=== PATIENT | male | born 1975 | race Two or more races ===

== ENCOUNTER 2018-09-24 11:11 | Emergency (ER) | payer MEDICAID, OTHER ==
[~2018-09-24] VITALS: Ht 162.6 cm; Wt 88.5 kg
[~2018-09-24 11:11] MED LIST: EMTRTAB10; [UNRECOGNIZED DRUG - OTHER]
[2018-09-24 12:19] VITALS: BP 143/96
[2018-09-24] MEDS ORDERED: SODIUM CHLORIDE 0.9% 2,000 ML IV ONE (13:23)
[2018-09-24 13:58] LABS: Hematocrit 37.4 % (41.0-53.0); Hemoglobin 12.5 g/dL (13.5-17.5); Mean Corpuscular Hemoglobin 28.3 pg (28.0-32.0); Mean Corpuscular Hgb Conc. 33.5 g/dL (32.0-36.0); Mean Corpuscular Volume 84.4 fL (80.0-100.0); Platelet Count (auto) 310 10^3/uL (140-450); Red Blood Cells 4.42 10^6/uL (4.5-5.90); Red Cell Distribution Width 15.6 % (11.8-14.3); White Blood Cell 7.1 10^3/uL (4.4-10.8)
[2018-09-24 14:05] LABS: Albumin 3.5 g/dL (3.4-5.0); Potassium 4.4 mmol/L (3.5-5.1)
[2018-09-24 14:09] LABS: BUN/Creatinine Ratio 17.6; Bilirubin, Total 0.3 mg/dL (0.2-1.0); Total Protein 9.2 g/dL (6.4-8.2)
[2018-09-24 14:16] LABS: Band Neutrophils % (manual) 0; Basophils % (manual) 0 (0.0-2.0); Blast Cells 0; Eosinophils % (manual) 0 (0-7); Metamyelocytes % 0; Myelocytes % 0; Promyelocytes % 0; Reactive Lymphocytes 0
[2018-09-24] MEDS ORDERED: IOHEXOL 350 MG/ML 100ML IJ ONE (15:02)
[2018-09-24 16:24] LABS: Urine Bacteria NONE SEEN /hpf (None Seen); Urine Blood Negative /uL (Negative); Urine Mucus FEW (None Seen); Urine Specific Gravity 1.039 (1.001-1.035); Urine WBC 1 /hpf (0 - 3)
[2018-09-24 16:31] LABS: Lymphocytes % (manual) 61 (10.0-50.0); Monocytes % (manual) 10 (0-12)
== END 2018-09-24 17:08 | disposition home or self-care (01) ==
LOC: ER 11:16
DX: K13.79 Other lesions of oral mucosa (principal); H92.01 Otalgia, right ear; Z79.899 Other long term (current) drug therapy
CPT/HCPCS: 36415; 70450; 70487; 80053; 81001; 85007; 85027; 99284; J7030; Q9967

== ENCOUNTER 2019-02-26 14:37 | Emergency (ER) | payer MEDICAID ==
[~2019-02-26] VITALS: Ht 162.6 cm; Wt 86.2 kg
[~2019-02-26 14:37] MED LIST changes: -EMTRTAB10; +[UNRECOGNIZED DRUG - CODE]
[2019-02-26] MEDS ORDERED: cefTRIAXone SOD 1,000 MG VL IM ONE (17:00)
[2019-02-26 19:32] VITALS: BP 113/74
[2019-02-26] MEDS ORDERED: cefTRIAXone SOD 1,000 MG VL ONE (19:40)
== END 2019-02-26 19:53 | disposition home or self-care (01) ==
LOC: ER 14:51
DX: K04.7 Periapical abscess without sinus (principal); K12.2 Cellulitis and abscess of mouth
CPT/HCPCS: 96372; 99283; J0696